=== PATIENT | female | born 1990 | race Caucasian/White ===

== ENCOUNTER → 2018-06-09 | Outpatient (CLI) | payer BC ==
--- NOTE | 2018-06-09 17:22 | US ---
EXAM DESCRIPTION: Pelvis Transvaginal: Ultrasound. CLINICAL HISTORY: 28 years Female RLQ PAIN. LMP 05/22/2018. 3, para 2, ectopic 1. COMPARISON: None. TECHNIQUE: Endovaginal scanning; Mora-scale and Doppler modes. FINDINGS: Uterus 9.6 x 4.5 x 3.8 cm. 88.6 mL. Endometrial thickness is 8.9 mm. Myometrium appears homogeneous. Uterus not retroflexed. Cervix contains cysts.. Cul-de-sac contains minimal fluid. Right ovary 2.5 x 2.4 x 2.3 cm 6.8 mL.. Normal waveform and color Doppler vascularity. Small follicles multiple but no cysts. No adnexal mass or free fluid. Left ovary 4.0 x 3.4 x 2.6 cm 18.6 mL.. Normal waveform and color Doppler vascularity. Multiple follicles but no cysts. 6.2 x 3.1 x 2.6 cm left adnexal mass separate from the ovary. Heterogeneous echoes with a homogeneous hypoechoic solid component similar to endometriosis. The remainder of the mass is vascular. IMPRESSION: 1. 6.2 cm heterogeneous solid mass separate from the ovary. Could represent tubal tissue or other tissue. Possible endometrioma. Not known where previous ectopic was located. Minimal fluid in the cul-de-sac. Consider surgical consult and MRI scan of the pelvis without and with gadolinium IV contrast. 2. Normal position and endometrial thickening uterus. Nabothian cysts in the cervix. Minimal fluid in the cul-de-sac. Right ovary is unremarkable. Electronically signed by: Mike Zhou MD 06/09/2018 5:19 PM [employer]
== END ==
LOC: US 09:46
PROVIDERS: ATTEND Nurse Practitioner Family
DX: R10.31 Right lower quadrant pain (principal); R19.04 Left lower quadrant abdominal swelling, mass and lump

== ENCOUNTER 2018-12-06 | Emergency (ER) | payer BC | END 2018-12-06 18:15 | disposition left against medical advice (07) ==

== ENCOUNTER 2018-12-07 16:42 | Emergency (ER) | payer SELFPAY ==
[2018-12-07] MEDS ORDERED: KETOROLAC TROMETHAMINE INJ 30 MG/ML VIAL IM ONE (17:36)
[2018-12-07] MEDS ORDERED: SODIUM CHLORIDE 0.9% 1000ML 2,000 ML IVS ONE (17:36)
[2018-12-07] MEDS ORDERED: ACETAMINOPHEN 325 MG TAB PO ONE (17:36)
[2018-12-07] MEDS ORDERED: cefTRIAXone SODIUM 1 GM in SODIUM CHL 0.9% 50ML MIN-BAG+ 50 ML IVPB ONE (18:26)
[2018-12-07] MEDS ORDERED: CIPROFLOXACIN 500 MG TAB PO ONE (18:26)
[2018-12-07] MEDS ORDERED: cefTRIAXone SODIUM 1 GM VIAL ONE (18:31)
[2018-12-07] MEDS ORDERED: SODIUM CHL 0.9% 50ML MIN-BAG+ 50 ML IVPB ONE (18:32)
--- NOTE | 2018-12-07 18:39 | RAD ---
EXAM: XR Abdomen 2 Views With XR Chest CLINICAL HISTORY: nv, left low back pain TECHNIQUE: Frontal view of the chest, frontal view of the abdomen/pelvis and upright or decubitus view of the abdomen. COMPARISON: No relevant prior studies available. FINDINGS: Limitations: None. Lungs: Unremarkable. No consolidation. Pleural space: Unremarkable. No pneumothorax. Heart: Unremarkable. No cardiomegaly. Mediastinum: Unremarkable. Intraperitoneal space: No free air. Gastrointestinal tract: Unremarkable. No dilation. Bones/joints: Unremarkable. IMPRESSION: No acute findings. Electronically signed by: Elaine Strange MD 12/07/2018 6:38 PM CDT
[2018-12-07 19:13] VITALS: O2SAT 98
--- NOTE | 2018-12-07 19:33 | ED.PDOC ---
History of Present Illness - General Chief Complaint: Problem Time Seen by Provider: 12/07/18 17:36 Source: patient Exam Limitations: no limitations - History of Present Illness Initial Comments: the patient is a 28-year-old female presenting to emergency room secondary to left flank pain as well as some fever and body aches. She has also had a few episodes of nausea and vomiting. Symptoms have been progressive over the last 3 days. No real urinary symptoms. No syncope. No recurrent infections. No central abdominal pain. No real abdominal pain all. Severity: moderate Improving Factors: nothing Worsening Factors: eating Associated Symptoms: loss of appetite, malaise, nausea/vomiting Allergies/Adverse Reactions: Allergies NO KNOWN ALLERGY Allergy (Verified 12/07/18 17:50) Home Medications: Ambulatory Orders Ciprofloxacin [Cipro] 500 mg PO BID #20 tab 12/07/18 Famotidine 20 mg PO DAILY #30 tab 12/07/18 Nitrofurantoin Monohydrate Mac [Macrobid] 100 mg PO BID #14 capsule 12/07/18 Ondansetron Odt [Zofran ODT] 4 mg PO Q8HR PRN #5 tab 12/07/18 Review of Systems - Review of Systems Constitutional: States: chills EENTM: States: no symptoms reported Respiratory: States: no symptoms reported Cardiology: States: no symptoms reported Gastrointestinal/Abdominal: States: nausea, vomiting Genitourinary: States: no symptoms reported Musculoskeletal: States: back pain Skin: States: no symptoms reported Neurological: States: no symptoms reported Endocrine: States: no symptoms reported All other Systems: No Change from Baseline Physical Exam - Physical Exam General Appearance: Alert, Obvious distress Eye Exam: bilateral normal Ears, Nose, Throat: hearing grossly normal, normal ENT inspection Neck: full range of motion, supple Respiratory: lungs clear, normal breath sounds, no respiratory distress, no accessory muscle use Cardiovascular/Chest: normal peripheral pulses, regular rate, rhythm, no edema Peripheral Pulses: radial,right: 2+, radial,left: 2+, dorsalis pedis,right: 2+, dorsalis pedis,left: 2+ Gastrointestinal/Abdominal: non tender, soft Rectal Exam: deferred Back Exam: CVA tenderness (L) Extremity: normal range of motion, non-tender, normal inspection, no pedal edema, normal capillary refill 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 For the nausea and vomiting she'll be written for Zofran for as needed use and Pepcid to help reduce any gastritis. For the pyelonephritis, the patient will be placed on ciprofloxacin and Macrobid for the next 10 days. Urine culture is being performed. If the patient is failing to improve then repeat workup including CT scan of the renal system would be required. She also understands that that would likely mean extended IV antibiotics. She needs to increase her fluid intake. ER warnings were given. - Results/Orders Results/Orders: acute abdominal series appears benign. Laboratory Tests 12/07/18 12/07/18 12/07/18 17:15 17:15 17:50 WBC 14.6 H RBC 5.17 Hgb 14.6 Hct 43.2 MCV 83.7 MCH 28.3 MCHC 33.8 RDW 14.3 Plt Count 256 MPV 7.3 L Absolute Neuts (auto) 11.10 H Absolute Lymphs (auto) 1.60 Absolute Monos (auto) 1.70 H Absolute Eos (auto) 0.00 Absolute Basos (auto) 0.10 Neutrophils % 76.3 Lymphocytes % 11.3 L Monocytes % 11.7 H Eosinophils % 0.3 L Basophils % 0.4 Sodium Potassium Chloride Carbon Dioxide Anion Gap BUN Creatinine BUN/Creatinine Ratio Random Glucose Serum Osmolality Lactic Acid Calcium Total Bilirubin AST ALT Alkaline Phosphatase Serum Total Protein Albumin Globulin Albumin/Globulin Ratio Amylase Lipase Urine Color Yellow Urine Appearance Sl cloudy Urine pH 6.0 Ur Specific [place] 1.015 Urine Protein Trace Urine Glucose (UA) Negative Urine Ketones Trace Urine Blood Moderate H Urine Nitrite Positive H Urine Bilirubin Negative Urine Urobilinogen 0.2 Ur Leukocyte Esterase Small H Urine RBC 3-5 H Urine WBC 40-50 H Ur Epithelial Cells 10-20 Urine Bacteria 3+ H Urine Mucus Small Urine HCG, Qual Negative 12/07/18 12/07/18 17:50 17:50 WBC RBC Hgb Hct MCV MCH MCHC RDW Plt Count MPV Absolute Neuts (auto) Absolute Lymphs (auto) Absolute Monos (auto) Absolute Eos (auto) Absolute Basos (auto) Neutrophils % Lymphocytes % Monocytes % Eosinophils % Basophils % Sodium 132 L Potassium 3.7 Chloride 102 Carbon Dioxide 21 Anion Gap 12.7 BUN < 5 L Creatinine 0.60 BUN/Creatinine Ratio 8.3 L Random Glucose 93 Serum Osmolality 261.5 L Lactic Acid 0.6 Calcium 8.7 Total Bilirubin 0.9 AST 14 ALT 17 Alkaline Phosphatase 45 Serum Total Protein 7.6 Albumin 3.6 Globulin 4.0 H Albumin/Globulin Ratio 0.9 L Amylase 23 L Lipase 23 Urine Color Urine Appearance Urine pH Ur Specific [place] Urine Protein Urine Glucose (UA) Urine Ketones Urine Blood Urine Nitrite Urine Bilirubin Urine Urobilinogen Ur Leukocyte Esterase Urine RBC Urine WBC Ur Epithelial Cells Urine Bacteria Urine Mucus Urine HCG, Qual Departure - Departure Clinical Impression: Pyelonephritis Vomiting Qualifiers: Vomiting type: unspecified Vomiting Intractability: non-intractable Nausea presence: with nausea Qualified Code(s): R11.2 - Nausea with vomiting, unspecified Disposition: Discharge to Home or Self Care Condition: Fair Departure Forms: ED Discharge - Pt. Copy, Patient Portal Self Enrollment Instructions: DI for Urinary Tract Infection (UTI) Diet: bland diet Activity: increase activity as tolerated Prescriptions: Ondansetron Odt [Zofran ODT] 4 mg PO Q8HR PRN #5 tab PRN Reason: Nausea--Moderate Ciprofloxacin [Cipro] 500 mg PO BID #20 tab Famotidine 20 mg PO DAILY #30 tab Nitrofurantoin Monohydrate Mac [Macrobid] 100 mg PO BID #14 capsule Home Medications: Ambulatory Orders Ciprofloxacin [Cipro] 500 mg PO BID #20 tab 12/07/18 Famotidine 20 mg PO DAILY #30 tab 12/07/18 Nitrofurantoin Monohydrate Mac [Macrobid] 100 mg PO BID #14 capsule 12/07/18 Ondansetron Odt [Zofran ODT] 4 mg PO Q8HR PRN #5 tab 12/07/18 Additional Instructions: the patient is a 28-year-old female presenting with pyelonephritis and associated symptoms of flank pain and nausea and vomiting. For the nausea and vomiting she'll be written for Zofran for as needed use and Pepcid to help reduce any gastritis. For the pyelonephritis, the patient will be placed on ciprofloxacin and Macrobid for the next 10 days. Urine culture is being performed. If the patient is failing to improve then repeat workup including CT scan of the renal system would be required. She also understands that that would likely mean extended IV antibiotics. She needs to increase her fluid intake. ER warnings were given.
[2018-12-07 20:29] VITALS: BP 118/74
== END 2018-12-07 20:00 | disposition home or self-care (01) ==
LOC: ER 16:42
DX: N12 Tubulo-interstitial nephritis, not specified as acute or chronic (principal); R11.2 Nausea with vomiting, unspecified
CPT/HCPCS: 36415; 74019; 80053; 81001; 81025; 82150; 83605; 83690; 85025; 87040; 87086; J0696; J1885; J7030; J7050